=== PATIENT | female | born 1950 | race Hispanic/Latino ===

== ENCOUNTER 2022-09-17 08:23 | Observation (INO) | payer MEDICARE ==
[2022-09-14 10:42] LABS: BASOPHILS % 0.7 % (0.0-1.0); EOSINOPHILS # (AUTO) 0.1 (0.0-0.4); EOSINOPHILS % 1.9 % (0.0-6.0); HEMATOCRIT 42.5 % (34.2-44.1); HEMOGLOBIN 13.9 g/dL (12.0-16.0); LYMPHOCYTES # (AUTO) 1.8 (1.0-3.2); LYMPHOCYTES % 30.1 % (18.0-39.1); MEAN CORPUSCULAR HGB CONC 32.7 g/dL (31-35); MEAN CORPUSCULAR VOLUME 91.6 fL (81-99); MONOCYTES # (AUTO) 0.4 (0.2-0.8); MONOCYTES % 6.2 % (4.4-11.3); NEUTROPHILS # (AUTO) 3.5 (2.1-6.9); NEUTROPHILS % 60.9 % (38.7-80.0); PLATELET COUNT 169 x10e3/uL (140-360); RED BLOOD COUNT 4.64 x10e6/uL (3.6-5.1)
[2022-09-14 10:44] LABS: ANION GAP 12.2 mmol/L (8-16); CALCIUM 9.7 mg/dL (8.4-10.2); CREATININE, SERUM 0.78 mg/dL (0.57-1.11); POTASSIUM 5.2 mmol/L (3.5-5.1)
[~2022-09-17 08:23] MED LIST: ACETAMINOPHEN 1000 MG/100 ML 100 ML IV ONE; B-121000 MC2; CEFAZOLIN SODIUM 2 GM ONE; CELECOXIB 200 MG CAP ONE; DEXAMETHASONE SOD PHOS 10 MG/1 ML VIAL ONE; GABAPENTIN 300 MG CAP ONE; LACTATED RINGER'S 0 ML ONE; LACTATED RINGER'S 1,000 ML ONE; LIPITOR10 MG PO; METFORMIN HCL500 MG PO; OLMESARTAN MEDO20 MG; ROPIVACAINE 246.25 MG, EPINEPHRINE HCL 1:1000 1ML 0.5 MG, CLONIDINE HCL 0.08 MG, KETORO... INJ ONE; VITAMIN D PO
[2022-09-17] MEDS ORDERED: TRANEXAMIC ACID 20 ML ONE (09:37)
[2022-09-17] MEDS ORDERED: SODIUM CHLORIDE 0.9% 500ML 500 ML ONE (09:37)
[2022-09-17] MEDS ORDERED: Vancomycin IV 1,000 MG ONE (09:37)
[2022-09-17] MEDS ORDERED: ONDANSETRON HCL INJ 2MG/ML 2ML 2 MG/ML VIAL IV PRN (11:30)
[2022-09-17] MEDS ORDERED: DOCUSATE SODIUM 100 MG CAP PO PRN (11:30)
[2022-09-17] MEDS ORDERED: HYDROCODONE/APAP 5MG-325MG TAB PO PRN (11:30)
[2022-09-17] MEDS ORDERED: HYDROCODONE/APAP 7.5MG-325MG 1 EA TAB PO PRN (11:30)
[2022-09-17] MEDS ORDERED: DIPHENHYDRAMINE HCL INJ 50 MG/ML VIAL IV PRN (11:30)
[2022-09-17] MEDS ORDERED: SODIUM CHLORIDE 0.9% 1000ML 1,000 ML IV SCH (11:30)
[2022-09-17] MEDS ORDERED: FENTANYL CITRATE/PF 100MCG/2 ML INJ ONE ×2 (12:30→12:34)
[2022-09-17] MEDS ORDERED: MIDAZOLAM HCL 2 MG/2 ML VIAL ONE (12:34)
[2022-09-17] MEDS ORDERED: ONDANSETRON HCL INJ 2MG/ML 2ML 2 MG/ML VIAL ONE ×2 (12:51→13:18)
[2022-09-17] MEDS ORDERED: KETOROLAC TROMETHAMINE 30 MG/ML VIAL ONE (13:18)
[2022-09-17] MEDS ORDERED: SEVOFLURANE INHAL SOLN 250 ML PEN BTL ONE (13:18)
[2022-09-17] MEDS ORDERED: LIDOCAINE HCL 2% LOCAL INJ 5 ML SDV VIAL INJ ONE (13:18)
[2022-09-17] MEDS ORDERED: DEXAMETHASONE SOD PHOS INJ 4 MG/ML SDV ONE (13:18)
[2022-09-17] MEDS ORDERED: PROPOFOL IV EMULSION 10 MG/ML 20 ML VIAL ONE (13:18)
[2022-09-17] MEDS ORDERED: EPHEDRINE SULFATE INJ 50 MG/ML VIAL ONE (13:18)
[2022-09-17] MEDS ORDERED: POVIDONE IODINE 0.05% 0.05 % ML PO ONE (13:18)
[2022-09-17] MEDS ORDERED: ROPIVACAINE 0.5% 5 MG/ML 30 ML SDV ONE (13:25)
[2022-09-17] MEDS ORDERED: ASPIRIN81 MG PO (15:20)
[2022-09-17 15:30] VITALS: BP 125/68; PULSE 102; RESP 18; O2SAT 95
[2022-09-17] MEDS ORDERED: ASPIRIN 325 MG TAB PO SCH (17:00)
[2022-09-17] MEDS ORDERED: CELECOXIB 100 MG CAP PO SCH (17:00)
[2022-09-18] MEDS ORDERED: ACETAMINOPHEN 1000 MG/100 ML IV PRN (11:30)
== END 2022-09-17 15:30 | disposition home health service (06) ==
LOC: OR 08:23 → PACU V 11:17
PROVIDERS: ADMIT Specialist; ATTEND Specialist
DX: M17.12 Unilateral primary osteoarthritis, left knee (principal); I10 Essential (primary) hypertension; E11.9 Type 2 diabetes mellitus without complications; Z79.84 Long term (current) use of oral hypoglycemic drugs; E78.5 Hyperlipidemia, unspecified; I20.8 Other forms of angina pectoris; K74.60 Unspecified cirrhosis of liver; E07.9 Disorder of thyroid, unspecified; Z79.82 Long term (current) use of aspirin; Z79.899 Other long term (current) drug therapy
CPT/HCPCS: 36415; 71046; 80048; 82948; 85025; 86850; 86900; 86920; C1713; C1776; G0378; J0171; J0690; J1100; J1885; J2001; J2250; J2405; J2795; J3370; J7040